=== PATIENT | female | born 1975 | race Caucasian/White ===

== ENCOUNTER 2020-12-16 16:58 | Emergency (ER) | payer OTHER ==
[~2020-12-16] VITALS: Ht 149.9 cm; Wt 84.4 kg
[2020-12-16 17:05] VITALS: BP 141/70
--- NOTE | 2020-12-16 17:07 | NUR ---
Pt ambulated to ER bed 9.
--- NOTE | 2020-12-16 17:12 | NUR ---
45/F BIB SELF C/O HIGH BLOOD SUGAR . DENIES S/S OF HYPERGLYCEMIA. BLOOD SUGAR 244 AT THIS TIME. PMH: HTN
[2020-12-16 17:50] VITALS: BP 141/70
--- NOTE | 2020-12-16 17:50 | NUR ---
Patient discharged with v/s stable. Written and verbal after care instructions given and explained. Patient verbalized understanding. Ambulatory with steady gait. All questions addressed prior to discharge. Advised to follow up with PMD.
== END 2020-12-16 17:50 | disposition home or self-care (01) ==
LOC: MED 16:58
DX: R73.9 Hyperglycemia, unspecified (principal); I10 Essential (primary) hypertension
CPT/HCPCS: 82948; 99281; 99282

== ENCOUNTER 2022-04-10 13:14 | Emergency (ER) | payer OTHER ==
[~2022-04-10] VITALS: Ht 149.9 cm; Wt 81.2 kg
[2022-04-10 13:18] VITALS: BP 136/78
--- NOTE | 2022-04-10 13:35 | NUR ---
X-Ray at bedside.
--- NOTE | 2022-04-10 13:45 | NUR ---
46 y/o female bib self from urgent care, pt states she was told her hgb was 6.1 and was told to come to er for blood transfusion. pt denies general weakness, dizziness, or syncope. denies nausea, vomiting, diarrhea. skin is pink/warm/dry. a&o x4 with even and steady gait. lungs clear bl, heart rate even and regular. pt denies any fever, cp, sob, or cough at this time. pt states pain is 0/10 at this time. vss. patient positioned for comfort. hob elevated. bed down. ermd made aware of pt. pmh: denies nka med: denies
--- NOTE | 2022-04-10 13:53 | NUR ---
cherelle swabbed and given to lab, labs drawn through iv and given to phleb
[2022-04-10 14:05] LABS: BASOPHILS % (AUTO) 0.3 % (0.0-2.0); EOSINOPHILS # (AUTO) 0.2 K/uL (0-0.4); EOSINOPHILS % (AUTO) 1.7 % (0.0-4.0); HEMATOCRIT 24.3 % (36-48); LYMPHOCYTES # (AUTO) 2.3 K/uL (2.5-16.5); LYMPHOCYTES % (AUTO) 24.5 % (20.5-51.1); MEAN CORPUSCULAR HEMOGLOBIN 14 pg (27-31); MEAN CORPUSCULAR HGB CONC 27 g/dL (33-37); MEAN CORPUSCULAR VOLUME 51.4 fL (80-94); MONOCYTES # (AUTO) 0.4 K/uL (0.8-1.0); MONOCYTES % (AUTO) 4.2 % (1.7-9.3); NEUTROPHILS # (AUTO) 6.4 K/uL (1.8-7.7); NEUTROPHILS % (AUTO) 69.3 % (42.2-75.2); PLATELET COUNT (AUTO) 476 K/uL (140-450); RED BLOOD CELL COUNT(AUTO) 4.72 MIL/uL (4.20-5.40); RED CELL DISTRIBUTION WIDTH 22.8 % (11.6-13.7); WHITE BLOOD COUNT (AUTO) 9.2 K/uL (4.8-10.8)
[2022-04-10 14:13] LABS: HEMOGLOBIN 6.6 g/dL (12.0-16.0)
[2022-04-10 14:25] LABS: ALBUMIN 3.7 g/dL (3.4-5.0); ANION GAP 11.1 (8-16); CARBON DIOXIDE 26.3 mmol/L (21-32); CREATININE 0.5 mg/dL (0.6-1.3); POTASSIUM 3.4 mmol/L (3.5-5.1); TOTAL BILIRUBIN 0.4 mg/dL (0.0-1.0)
--- NOTE | 2022-04-10 15:25 | NUR ---
IV removed, catheter intact and site benign. Applied folded 4x4 gauze and tape to stop bleeding.
--- NOTE | 2022-04-10 15:26 | NUR ---
Patient discharged with v/s stable. Written and verbal after care instructions FOR ANEMIA given and explained. Patient verbalized understanding. Ambulatory with steady gait. All questions addressed prior to discharge. Advised to follow up with PMD.
--- NOTE | 2022-04-10 15:31 | NUR ---
The patient's care was reviewed and supervised by Shakila Sorto, RN, RN.
[2022-04-10] MEDS: NACL 0.9% 1,000 ML IV SCH (15:34)
== END 2022-04-10 15:26 | disposition home or self-care (01) ==
LOC: MED 13:14
DX: D64.9 Anemia, unspecified (principal); Z20.822 Contact with and (suspected) exposure to COVID-19; I10 Essential (primary) hypertension; Z98.890 Other specified postprocedural states
CPT/HCPCS: 36415; 71045; 80053; 81002; 81025; 85025; 86886; 86900; 86901; 87426; 96360; 99284; J7030